=== PATIENT | female | born 1950 | race Caucasian/White ===

== ENCOUNTER 2018-03-01 17:58 | Emergency (ER) | payer OTHER ==
[~2018-03-01] VITALS: Ht 165.1 cm; Wt 72.6 kg
[2018-03-01 18:19] VITALS: BP 116/68
--- NOTE | 2018-03-01 18:45 | NUR ---
67F BIB SELF WITH C/O WEAKNESS, CHILLS, AND N/V. PT REPORTS OF DIARRHEA, FEVERS, OR PAIN. PT REPORTS OF 5 EPISODES OF EMESIS SINCE YESTERDAY. PT IS AOX4 WITH STEADY GAIT. GCS=15. SKIN IS JAUNDICE. PT REPORT HX OF CIRRHOSIS. RR ARE EVEN AND UNLABORED. NO ACUTE DISTRESS. NO ACUTE DISTRESS. AWAITING ER MD MCPHERSON. WILL CONTINUE. ALL NEEDS MET AT THIS TIME.
[2018-03-01 18:59] LABS: BASOPHILS # (AUTO) 0.1 K/uL (0.00-0.22); BASOPHILS % (AUTO) 1.2 % (0.0-2.0); EOSINOPHILS # (AUTO) 0.3 K/uL (0-0.4); EOSINOPHILS % (AUTO) 7.4 % (0.0-4.0); HEMATOCRIT 37.6 % (36-48); HEMOGLOBIN 12.6 g/dL (12.0-16.0); LYMPHOCYTES # (AUTO) 1.3 K/uL (2.5-16.5); LYMPHOCYTES % (AUTO) 29.9 % (20.5-51.1); MEAN CORPUSCULAR HEMOGLOBIN 31 pg (27-31); MEAN CORPUSCULAR HGB CONC 33 g/dL (33-37); MEAN CORPUSCULAR VOLUME 92.1 fL (80-94); MONOCYTES # (AUTO) 0.6 K/uL (0.8-1.0); MONOCYTES % (AUTO) 13.9 % (1.7-9.3); NEUTROPHILS # (AUTO) 2.1 K/uL (1.8-7.7); NEUTROPHILS % (AUTO) 47.6 % (42.2-75.2); PLATELET COUNT (AUTO) 67 K/uL (140-450); RED BLOOD CELL COUNT(AUTO) 4.08 MIL/uL (4.20-5.40); RED CELL DISTRIBUTION WIDTH 15.7 % (11.6-13.7); WHITE BLOOD COUNT (AUTO) 4.4 K/uL (4.8-10.8)
[2018-03-01 19:03] LABS: APPEARANCE,URINE CLEAR (CLEAR); BILIRUBIN,URINE NEGATIVE (NEGATIVE); BLOOD, URINE NEGATIVE (NEGATIVE); COLOR,URINE YELLOW (YELLOW); LEUKOCYTE ESTERASE ,URINE NEGATIVE (NEGATIVE); NITRITE, URINE NEGATIVE (NEGATIVE); UGLUCOSE NEGATIVE (NEGATIVE)
--- NOTE | 2018-03-01 19:09 | NUR ---
Pt report given to shiv ervin. Transfer of care at this time.
[2018-03-01 19:13] LABS: ANION GAP 10.3 (8-16); CARBON DIOXIDE 27.6 mmol/L (21-32); CREATININE 1.3 mg/dL (0.6-1.3); POTASSIUM 3.9 mmol/L (3.5-5.1)
--- NOTE | 2018-03-01 19:15 | NUR ---
PATIENT IS RESTING IN BED. PATIENT IS NOT IN DISTRESS AT THIS TIME. PATIENT DENIES ANY PAIN. REPORT RECEIVED FROM MICHELLE ZHU. WILL CONTINUE TO MONITOR.
[2018-03-01 19:19] LABS: ALBUMIN 2.9 g/dL (3.4-5.0); TOTAL BILIRUBIN 1.7 mg/dL (0.0-1.0)
[2018-03-01] MEDS ORDERED: NACL 0.9% 1,000 ML IV ONE (21:30)
--- NOTE | 2018-03-01 22:22 | NUR ---
PATIENT HAS BEEN EDUCATED REGARDING POSSIBLE TRANSFER TO NURSING FACILITY PICKED BY PATIENTS INSURANCE. PATIENT RELUCTANT FOR TRANSFER AND PREFERS TO BE TRANSFERRED ELSEWHERE. PATIENT IS REACHING OUT TO A FACILITY SHE KNOWS AND FEELS COMFORTABLE WITH. WILL FOLLOW UP WITH INSURANCE.
[2018-03-01] MEDS ORDERED: RIFA150C2 PO (22:27)
[2018-03-01] MEDS ORDERED: FURO-570 PO (22:27)
[2018-03-01] MEDS ORDERED: SPIR50TA PO (22:27)
--- NOTE | 2018-03-01 22:45 | NUR ---
PATIENT REFUSES TO GO TO NURSING FACILITY. DR. BAILEY STATES OKAY TO DISCHARGE PATIENT. IV FLUIDS GIVEN. NO SIGNS OR SYMPTOMS OF ACUTE DISTRESS NOTED. PATIENT IS ADVISED TO FOLLOW UP WITH PRIMARY CARE PROVIDER. VSS.
--- NOTE | 2018-03-01 23:08 | NUR ---
Patient discharged with v/s stable BY DR. BAILEY. Written and verbal after care instructions given and explained. Patient verbalized understanding. Ambulatory with steady gait. All questions addressed prior to discharge. Advised to follow up with PMD.
[2018-03-01 23:18] VITALS: BP 100/49
== END 2018-03-01 23:08 | disposition home or self-care (01) ==
LOC: MED 17:58
DX: E86.0 Dehydration (principal); R55 Syncope and collapse; Z79.899 Other long term (current) drug therapy
CPT/HCPCS: 36415; 71045; 80053; 81003; 82140; 82150; 83690; 84443; 85025; 96360; 99285; J7030